=== PATIENT | female | born 1985 | race African-American/Black ===

== ENCOUNTER 2021-07-30 15:15 | Emergency (ER) | payer OTHER ==
[~2021-07-30] VITALS: Ht 177.8 cm; Wt 75.0 kg
[2021-07-30 15:32] VITALS: BP 122/63
[2021-07-30] MEDS ORDERED: ACETAMINOPHEN 325MG TABLET PO ONE (16:15)
[2021-07-30 16:25] LABS: *AMPHETAMINES SCREEN URINE NEGATIVE (NEGATIVE); *BARBITURATES SCREEN URINE NEGATIVE (NEGATIVE); *BENZODIAZEPINES SCREEN URINE NEGATIVE (NEGATIVE); *COCAINE SCREEN URINE NEGATIVE (NEGATIVE); METHADONE URINE SCREEN NEGATIVE (NEGATIVE); OPIATES URINE SCREEN NEGATIVE (NEGATIVE); PHENCYCLIDINE URINE SCREEN NEGATIVE (NEGATIVE)
[2021-07-30 16:29] LABS: CANNABINOID URINE SCREEN PRESUMTIVE POSITIVE (NEGATIVE)
[2021-07-30] MEDS ORDERED: ACET-2708 MT (16:36)
== END 2021-07-30 17:45 | disposition home or self-care (01) ==
LOC: EDBD → ER 15:15
DX: M25.551 Pain in right hip (principal); M25.552 Pain in left hip; Z00.00 Encounter for general adult medical examination without abnormal findings; F12.10 Cannabis abuse, uncomplicated
CPT/HCPCS: 80305; 81025; 99283

== ENCOUNTER 2021-07-31 11:20 | Emergency (ER) | payer OTHER ==
[~2021-07-31] VITALS: Ht 182.9 cm; Wt 73.0 kg
[~2021-07-31 11:20] MED LIST: ACET-2708 MT
[2021-07-31 11:25] VITALS: BP 103/69
== END 2021-07-31 13:22 | disposition home or self-care (01) ==
LOC: EDBD 11:20 → ER 11:20
DX: Z04.89 Encounter for examination and observation for other specified reasons (principal); F12.10 Cannabis abuse, uncomplicated; Z59.00 Homelessness unspecified
CPT/HCPCS: 99281